=== PATIENT | male | born 1990 | race African-American/Black ===

== ENCOUNTER 2022-08-06 05:36 | Emergency (ER) | payer MEDICAID ==
[~2022-08-06] VITALS: Ht 180.3 cm; Wt 80.0 kg
[2022-08-06 06:44] VITALS: BP 126/76
== END 2022-08-06 07:42 | disposition left against medical advice (07) ==
LOC: ER 05:36
DX: Z53.21 Procedure and treatment not carried out due to patient leaving prior to being seen by health care provider (principal)

== ENCOUNTER 2022-08-06 07:49 | Emergency (ER) | payer MEDICAID ==
[~2022-08-06] VITALS: Ht 177.8 cm; Wt 80.0 kg
[2022-08-06] MEDS ORDERED: HYDROCODONE/ACETAMINOPHEN 5/325MG TABLET PO ONE (10:45)
[2022-08-06 10:57] VITALS: BP 146/82
== END 2022-08-06 12:17 | disposition home or self-care (01) ==
LOC: ER 07:49
DX: S00.03XA Contusion of scalp, initial encounter (principal); W18.39XA Other fall on same level, initial encounter; Y93.89 Activity, other specified; Y92.89 Other specified places as the place of occurrence of the external cause; Y99.8 Other external cause status
CPT/HCPCS: 99284